=== PATIENT | male | born 1985 | race Caucasian/White ===

== ENCOUNTER 2019-11-20 13:02 | Inpatient (IN) | payer SELFPAY ==
[~2019-11-20] VITALS: Ht 160 cm; Wt 51.3 kg
[2019-11-20 13:15] VITALS: BP 124/79
--- NOTE | 2019-11-20 13:15 | NUR ---
ED Nurse Note: Patient walked into the ED from home with c/o RLQ abdominal pain for the past week. Pain is 9/10 accompanied with vomiting. Patient also c/o flu like symptoms; coughing, fever, sob, diarrhea, lost of taste and smell. Per patient he was tested negative for COVID 2 days ago from [facility]. PAtient placed on isolation bed
[2019-11-20] MEDS ORDERED: Morphine Sulfate 2mg/ml Inj(IV/IM USE ONLY) IVP ONE (13:30)
[2019-11-20] MEDS ORDERED: Ketorolac 30mg Inj IV ONE (13:30)
[2019-11-20] MEDS ORDERED: Omnipaque-300 100ml vial INJ PRN (13:30)
[2019-11-20 13:49] LABS: EOSINOPHILS % (AUTO) 0.7 % (0.0-3.0); HEMATOCRIT 43.7 % (42.0-52.0); HEMOGLOBIN 13.9 G/DL (14.2-18.0); LYMPHOCYTES % (AUTO) 23.3 % (20.0-45.0); MEAN CORPUSCULAR VOLUME 95 FL (80-99); MONOCYTES % (AUTO) 6.9 % (1.0-10.0); NEUTROPHILS % (AUTO) 68.1 % (45.0-75.0); PLATELET COUNT 415 K/UL (150-450); RED BLOOD COUNT 4.59 M/UL (4.70-6.10); RED CELL DISTRIBUTION WIDTH 12.4 % (11.6-14.8); WHITE BLOOD COUNT 11.5 K/UL (4.8-10.8)
[2019-11-20 14:00] LABS: ANION GAP 11 mmol/L (5-15); BLOOD UREA NITROGEN 21 mg/dL (7-18); CALCIUM 8.8 MG/DL (8.5-10.1); CARBON DIOXIDE 26 MMOL/L (21-32); CHLORIDE 103 MMOL/L (98-107); CREATININE 1.3 MG/DL (0.55-1.30); POTASSIUM 4.3 MMOL/L (3.5-5.1); SODIUM 140 MMOL/L (136-145)
[2019-11-20 14:13] LABS: ALANINE AMINOTRANSFERASE 22 U/L (12-78); ALBUMIN 4.4 G/DL (3.4-5.0); ALBUMIN/GLOBULIN RATIO 1.4 (1.0-2.7); ALKALINE PHOSPHATASE 74 U/L (46-116); ASPARTATE AMINO TRANSFERASE 15 U/L (15-37); BILIRUBIN,TOTAL 0.1 MG/DL (0.2-1.0)
--- NOTE | 2019-11-20 14:35 | NUR ---
ED Nurse Note: injection molding process technician at bedside
--- NOTE | 2019-11-20 14:46 | Emergency Room Report ---
History of Present Illness General Chief Complaint: Abdominal Pain Source: Patient (Zakiya Sanders) Present Illness HPI 34-year-old male with history of hypertension, anxiety currently taking lisinopril, alprazolam and Effexor here complaining of 2 weeks of continuous mid to right lower quadrant abdominal pain rating a 10 out of 10 without radiation. Complains of multiple bouts of nonbloody emesis and complains of diarrhea and reports that few days ago he noticed a few drops of blood after defecation. Denies fever and chills. Complains of shortness of breath, loss of taste and smell for 1 week. Patient reports that he came in contact with a cold with positive coworker about a week ago. Denies chest pain, cough and congestion at this time. Reports that he smokes tobacco on daily basis. Denies any alcohol use and other drug use. Reports that before coming here he took 3 Tylenols. Vital signs are within normal limits. Denies urinary symptoms. (Zakiya Sanders) Allergies: Coded Allergies: No Known Allergies (Unverified , 11/20/19) COVID-19 Screening Contact w/high risk pt: Yes Recent Travel to affected area: No Experienced COVID-19 symptoms?: Yes COVID-19 symptoms experienced: Fever (T>100.4F or >38C), Shortness of Breath, Cough COVID-19 Testing performed [place] [place] [employer]: Yes COVID-19 Screening: Negative COVID-19 COVID-19 Testing Source: [facility] (Zakiya Sanders) Patient History Past Medical History: see triage record Past Surgical History: none Pertinent Family History: none Social History: Reports: smoking Reviewed Nursing Documentation: PMH: Agreed; PSxH: Agreed (Zakiya Sanders) Past Medical History: other - pancreatitis Social History: Reports: smoking, alcohol use Social History Narrative L and D RN (Kirit Melendrez MD) Nursing Documentation-PMH Past Medical History: No History, Except For Hx Hypertension: Yes (Zakiya Sanders) Review of Systems All Other Systems: negative except mentioned in HPI (Zakiya Sanders) Physical Exam Vital Signs Date Time Temp Pulse Resp B/P (MAP) Pulse Ox O2 Delivery O2 Flow Rate FiO2 11/20/19 13:09 98.2 113 20 124/79 (94) 95 Room Air Sp02 EP Interpretation: reviewed, normal General Appearance: mild distress Head: normocephalic, atraumatic Eyes: bilateral eye normal inspection, bilateral eye PERRL ENT: hearing grossly normal, normal pharynx, no angioedema, normal voice Neck: full range of motion, supple/symm/no masses Respiratory: chest non-tender, lungs clear, normal breath sounds, no rhonchi, no wheezing, speaking full sentences Cardiovascular #1: regular rate, rhythm, no edema, no murmur Gastrointestinal: normal bowel sounds, non tender, soft, no mass, no organomegaly, no peritonitis, non-distended, no hernia, no pulsatile mass, no rebound, guarding - Diffuse Rectal: deferred Genitourinary: no CVA tenderness Musculoskeletal: back normal, digits/nails normal, no calf tenderness Neurologic: alert, motor strength/tone normal, oriented x3, sensory intact, responsive, speech normal Psychiatric: judgement/insight normal, memory normal, mood/affect normal, no suicidal/homicidal ideation Skin: no rash Lymphatic: no adenopathy (Zakiya Sanders) Medical Decision Making PA Attestation All my diagnosis and treatment plans were reviewed ad discussed with my supervising physician Dr. Melendrez (Zakiya Sanders) Diagnostic Impression: Primary Impression: Acute pancreatitis Qualified Codes: K85.90 - Acute pancreatitis without necrosis or infection, unspecified Additional Impression: Suspected 2019 novel coronavirus infection ER Course 34-year-old male with history of hypertension, anxiety currently taking lisinopril, alprazolam and Effexor here complaining of 2 weeks of continuous mid to right lower quadrant abdominal pain rating a 10 out of 10 without radiation. Complains of multiple bouts of nonbloody emesis and complains of diarrhea and reports that few days ago he noticed a few drops of blood after defecation. Denies fever and chills. Complains of shortness of breath, loss of taste and smell for 1 week. Patient reports that he came in contact with a cold with positive coworker about a week ago. Denies chest pain, cough and congestion at this time. Reports that he smokes tobacco on daily basis. Denies any alcohol use and other drug use. Reports that before coming here he took 3 Tylenols. Vital signs are within normal limits. Denies urinary symptoms. Ddx considered but are not limited to: appendicitis, cholecystis, gastritis, gastroenteritis, UTI, pyelonephritis, SBO, diverticulitis, influenza with GI manifestation, FL, pancreatitis Vital signs: are WNL, pt. is afebrile H&PE are most consistent with: Acute pancreatitis, suspected COVID-19 ORDERS: abdominal CT, abdominal pain set, EKG, ED INTERVENTIONS: NS bolus, Zofran, Pepcid, morphine, Toradol Patient was admitted with diagnosis of acute pancreatitis to Dr. Hunt under supervision of DrJaniya: Aneesh pt stable at time of admission (Zakiya Sanders) ER Course Please see above note. Full history and physical performed by me. Although he admits to alcohol the last time he ingested was 5-1/2 months ago. In addition the patient states 2 months ago he was admitted to the hospital for acute pancreatitis. A CT scan was performed but no ultrasound. The etiology of pancreatitis was not determined according to the patient. Labs today suggest the patient has acute pancreatitis. He reports 9-/2/10 pain after initial treatment with morphine. Dilaudid is ordered. Lab results and diagnosis discussed with patient. Patient admitted to the hospital for further evaluation and treatment. (Kirit Melendrez MD) EKG Diagnostic Results Rate: normal Rhythm: NSR ST Segments: no acute changes Other Impression No acute ST changes (Zakiya Sanders) Chest X-Ray Diagnostic Results Chest X-Ray Diagnostic Results : Chest X-Ray Ordered: Yes # of Views/Limited/Complete: 1 View Indication: Shortness of Breath EP Interpretation: Yes PA Xray: Interpretation reviewed, by supervising MD, and agrees with findings. Interpretation: no consolidation, no effusion, no pneumothorax Impression: No acute disease Electronically Signed by: Zakiya Bey PA-C (Zakiya Sanders) CT/MRI/US Diagnostic Results CT/MRI/US Diagnostic Results : Imaging Test Ordered: CT abdomen pelvis with contrast Impression FINDINGS: Lung bases: Unremarkable. No mass. No consolidation. ABDOMEN: Liver: There is a 1.8 cm hypodensity in the superior interlobar liver seen on series 4, image 16. This could reflect some focal fat, but location is not typical. Nonemergent ultrasound would be a reasonable first step in characterization (specifically to see if vessels passed through the lesion). Gallbladder and bile ducts: Unremarkable. No calcified stones. No ductal dilation. Pancreas: Unremarkable. No mass. No ductal dilation. Spleen: Unremarkable. No splenomegaly. Adrenals: Unremarkable. No mass. Kidneys and ureters: 6 mm lower pole right renal calculus. No ureteral stone or hydronephrosis. Stomach and bowel: No obstruction or perforation. PELVIS: Appendix: Unremarkable appendix. Bladder: Unremarkable. No mass. Reproductive: Unremarkable as visualized. ABDOMEN and PELVIS: Intraperitoneal space: Unremarkable. No free air. No significant fluid collection. Bones/joints: No acute fracture. Lumbar levocurvature. Soft tissues: Unremarkable. Vasculature: Unremarkable. No abdominal aortic aneurysm. Lymph nodes: Unremarkable. No enlarged lymph nodes. IMPRESSION: No acute process to explain symptoms. Nonobstructing right renal calculus. 1.8 cm hypodensity in the superior interlobar liver. This could reflect focal fat, but location is not typical. Recommend nonemergent ultrasound. (Zakiya Sanders) Last Vital Signs Date Time Temp Pulse Resp B/P (MAP) Pulse Ox O2 Delivery O2 Flow Rate FiO2 11/20/19 13:15 108 20 Room Air 11/20/19 13:15 99.0 124/79 95 (Zakiya Sanders) Last Vital Signs Date Time Temp Pulse Resp B/P (MAP) Pulse Ox O2 Delivery O2 Flow Rate FiO2 11/20/19 18:23 Room Air 11/20/19 18:04 96.0 73 19 107/73 (84) 100 Status: improved (Kirit Melendrez MD) Disposition: ADMITTED INPATIENT Condition: Stable Referrals: NOT CHOSEN NICK/,REFERRING (PCP) Zakiya Sanders Nov 20, 2019 14:46 Kirit Melendrez MD Nov 21, 2019 00:01
--- NOTE | 2019-11-20 15:01 | Diagnostic Imaging Report ---
EXAM: XR Chest, 1 View CLINICAL HISTORY: SOB TECHNIQUE: Frontal view of the chest. COMPARISON: No relevant prior studies available. FINDINGS: Lungs: Unremarkable. No consolidation. Pleural space: Unremarkable. No pneumothorax. Heart: Unremarkable. No cardiomegaly. Mediastinum: Unremarkable. Bones/joints: Unremarkable. IMPRESSION: No evidence of acute pulmonary disease
[2019-11-20 15:15] VITALS: BP 135/82
[2019-11-20] MEDS ORDERED: HYDROmorphone 1mg/ml Carpuject IVP ONE (15:15)
[2019-11-20] MEDS ORDERED: DiphenhydrAMINE 50mg/ml Inj IVP ONE (15:15)
[2019-11-20] MEDS ORDERED: Metoclopramide 10mg/2ml Inj IVP ONE (15:15)
[2019-11-20] MEDS ORDERED: LISINOPRIL10 MG ORAL (15:43)
[2019-11-20] MEDS ORDERED: EFFEXOR XR150 MG ORAL (15:48)
[2019-11-20] MEDS ORDERED: ALPRAZOLAM2 M1 ORAL (15:49)
--- NOTE | 2019-11-20 15:51 | NUR ---
ED Nurse Note: Patient to CT per bed
--- NOTE | 2019-11-20 16:00 | NUR ---
ED Nurse Note: Patient back from CT. Patient is more comfortable, still complaints of minimal pain. Able to rest and sleep as of the moment.
--- NOTE | 2019-11-20 16:31 | Diagnostic Imaging Report ---
EXAM: CT Abdomen and Pelvis With Intravenous Contrast CLINICAL HISTORY: PAIN TECHNIQUE: Axial computed tomography images of the abdomen and pelvis with intravenous contrast. CTDI is 3.1 mGy and DLP is 163.4 mGy-cm. One or more of the following dose reduction techniques were used: automated exposure control, adjustment of the mA and/or kV according to patient size, use of iterative reconstruction technique. COMPARISON: No relevant prior studies available. FINDINGS: Lung bases: Unremarkable. No mass. No consolidation. ABDOMEN: Liver: There is a 1.8 cm hypodensity in the superior interlobar liver seen on series 4, image 16. This could reflect some focal fat, but location is not typical. Nonemergent ultrasound would be a reasonable first step in characterization (specifically to see if vessels passed through the lesion). Gallbladder and bile ducts: Unremarkable. No calcified stones. No ductal dilation. Pancreas: Unremarkable. No mass. No ductal dilation. Spleen: Unremarkable. No splenomegaly. Adrenals: Unremarkable. No mass. Kidneys and ureters: 6 mm lower pole right renal calculus. No ureteral stone or hydronephrosis. Stomach and bowel: No obstruction or perforation. PELVIS: Appendix: Unremarkable appendix. Bladder: Unremarkable. No mass. Reproductive: Unremarkable as visualized. ABDOMEN and PELVIS: Intraperitoneal space: Unremarkable. No free air. No significant fluid collection. Bones/joints: No acute fracture. Lumbar levocurvature. Soft tissues: Unremarkable. Vasculature: Unremarkable. No abdominal aortic aneurysm. Lymph nodes: Unremarkable. No enlarged lymph nodes. IMPRESSION: No acute process to explain symptoms. Nonobstructing right renal calculus. 1.8 cm hypodensity in the superior interlobar liver. This could reflect focal fat, but location is not typical. Recommend nonemergent ultrasound.
--- NOTE | 2019-11-20 17:15 | NUR ---
ED Nurse Note: Report given to NAJMA GUTIERREZ
--- NOTE | 2019-11-20 17:20 | NUR ---
ED Nurse Note: Patient unable to void and produce specimen for urinalysis. Straight cath done but patient has prostate problem. ERMD notified and agreed to bring patient up without urinalysis
--- NOTE | 2019-11-20 17:35 | NUR ---
TRANSFER TO FLOOR: Patient transferred to [facility] 4E at room 418-2 via gurney accompanied by RN and VENEER JOINTER HELPER. Belongings checked together with RN. Transported safely to bed and endorsed to RN on duty.
--- NOTE | 2019-11-20 17:57 | NUR ---
NURSE NOTES: Patient admitted from ER; received telephone report from MATT Whyte; patient arrived the floor via gurney; alert x4; on room air, no sing of shortness of breath; no sing of distress; no sing of chest pain; IV Left For-arm flushes well; belonging signed by transferring and receiving nurse's; skin intact; side rails up x2,breaks engaged, bed at lowest position; call light within reach; vital signs taken upon arrival to the unit; urine hut left at the toilet to collect urine; patient is aware; call light within reach; will keep monitoring.
--- NOTE | 2019-11-20 18:03 | NUR ---
NURSE NOTES: I received admission order from MD Tejeda; order carried out as order given;
[2019-11-20 18:04] VITALS: BP 107/73
--- NOTE | 2019-11-20 19:29 | NUR ---
HAND-OFF: Report given to MATT Cohen. Endorsed to the incoming nurse the need to collect Urine; patient resting; plan of care endorsed;
--- NOTE | 2019-11-20 19:35 | NUR ---
NURSE NOTES: Pt. received from MATT Hollis. Pt. AAOx4, on room air breathing even and unlabored, complaints of pain in the epigastric area radiating to the right upper quadrant, will follow up with primary physician for paid medication orders. Pt. reports episodes of clear emesis, will also follow up with primary physician for orders. IV left FA 18g intact and patent, running 1/2 NS at 100cc/hr. Bed is low and locked side rails x2 up, and call light in reach.
--- NOTE | 2019-11-20 19:40 | NUR ---
NURSE NOTES: Called Dr. Tejeda for pain medication and antiemetic orders, awaiting return call.
--- NOTE | 2019-11-20 19:50 | NUR ---
NURSE NOTES: Orders received from Dr. Tejeda to consult with Dr. Cam and Dr. Campbell. Calls made to Dr. Cam and Dr. Campbell, awaiting return call and orders.
[2019-11-20 20:00] VITALS: BP 112/73
--- NOTE | 2019-11-20 20:40 | NUR ---
NURSE NOTES: Orders received from Dr. Cam, will proceed with orders.
[2019-11-20] MEDS ORDERED: LORazepam Inj 2mg/ml 1ml IV PRN (20:45)
[2019-11-20] MEDS: Morphine Sulfate 4mg/ml Inj (IV USE ONLY) IVP PRN ×2 (21:08→23:16)
[2019-11-21] VITALS: BP 111/73
[2019-11-21] LABS: APPEARANCE,URINE CLEAR; BILIRUBIN, URINE NEGATIVE (NEGATIVE); COLOR,URINE PALE YELLOW; GLUCOSE, URINE (UA) NEGATIVE (NEGATIVE); KETONES,URINE NEGATIVE (NEGATIVE); LEUKOCYTE ESTERASE ,URINE NEGATIVE (NEGATIVE); NITRITE,URINE NEGATIVE (NEGATIVE); PH,URINE 5 (4.5-8.0); PROTEIN,URINE NEGATIVE (NEGATIVE); UROBILINOGEN,URINE NORMAL MG/DL (0.0-1.0)
[2019-11-21] MEDS: Morphine Sulfate 4mg/ml Inj (IV USE ONLY) IVP PRN ×4 (01:47→08:37)
[2019-11-21 04:00] VITALS: BP 110/66
--- NOTE | 2019-11-21 07:01 | NUR ---
NURSE NOTES: Pt. complaining of new onset lower abdominal pain. Pt. voiding throughout the night, now complaining of difficulty. Bladder scan was preformed and showed 659 cc fluid retained. Lower abdomen is tender to palpation. Charge nurse aware, Dr. Tejeda called and notified. Awaiting return call for orders.
[2019-11-21 07:10] LABS: BASOPHILS % (AUTO) 1.7 % (0.0-2.0); EOSINOPHILS % (AUTO) 1.6 % (0.0-3.0); HEMATOCRIT 39.7 % (42.0-52.0); HEMOGLOBIN 12.4 G/DL (14.2-18.0); LYMPHOCYTES % (AUTO) 47.3 % (20.0-45.0); MEAN CORPUSCULAR VOLUME 97 FL (80-99); MONOCYTES % (AUTO) 8.9 % (1.0-10.0); NEUTROPHILS % (AUTO) 40.6 % (45.0-75.0); PLATELET COUNT 296 K/UL (150-450); RED BLOOD COUNT 4.11 M/UL (4.70-6.10); RED CELL DISTRIBUTION WIDTH 12.7 % (11.6-14.8); WHITE BLOOD COUNT 5.3 K/UL (4.8-10.8)
[2019-11-21 07:28] LABS: ALANINE AMINOTRANSFERASE 19 U/L (12-78); ALBUMIN 3.3 G/DL (3.4-5.0); ALBUMIN/GLOBULIN RATIO 1.1 (1.0-2.7); ALKALINE PHOSPHATASE 55 U/L (46-116); ANION GAP 6 mmol/L (5-15); ASPARTATE AMINO TRANSFERASE 16 U/L (15-37); BILIRUBIN,TOTAL 0.2 MG/DL (0.2-1.0); BLOOD UREA NITROGEN 15 mg/dL (7-18); CALCIUM 8.2 MG/DL (8.5-10.1); CARBON DIOXIDE 29 MMOL/L (21-32); CHLORIDE 110 MMOL/L (98-107); CREATININE 1.2 MG/DL (0.55-1.30); POTASSIUM 4.9 MMOL/L (3.5-5.1); SODIUM 145 MMOL/L (136-145)
--- NOTE | 2019-11-21 07:34 | NUR ---
HAND-OFF: Report given to MATT Yarbrough. Endorsed awaiting unders from Dr. Tejeda regarding pt.s abdominal pain and urine retention.
--- NOTE | 2019-11-21 07:34 | NUR ---
NURSE NOTES: Message left for Dr. Tejeda to follow up on orders for pt.'s fluid retention. Awaiting call back and will endorse to day shift nurse.
[2019-11-21 08:00] VITALS: BP 112/71
--- NOTE | 2019-11-21 08:00 | NUR ---
NURSE NOTES: received patient in bed, patient complaint of high level of pain at lower abdomen, reports he's unable to urinate. Pain medication not due, will contact MD for further orders. LFA IV access, receives IVF, no sign of infiltration noted. Call light within easy reach, siderails up x2, bed locked at lowest position possible. NPO status, patient is aware and compliant. Will continue to monitor patient and follow up with the plan of care.
--- NOTE | 2019-11-21 08:40 | NUR ---
NURSE NOTES: Inserted Candelaria catheter FR16, with light yellow urine output. Insuflated baloon with 10cc NS. Anchored to left anterior/medial tight.
--- NOTE | 2019-11-21 10:08 | Consultation ---
History of Present Illness General Date patient seen: Nov 21, 2019 Time patient seen: 09:30 - am Chief Complaint: Abdominal Pain Referring physician: Ileana Reason for Consultation: Pain Management Present Illness HPI 34-year-old male with history of hypertension, anxiety currently taking lisinopril, alprazolam and Effexor here complaining of 2 weeks of continuous mid to right lower quadrant abdominal pain rating a 10 out of 10 without radiation. Complains of multiple bouts of nonbloody emesis and complains of diarrhea and reports that few days ago he noticed a few drops of blood after defecation. Reports that before coming here he took 3 Tylenols. Started on Morphine 4mg IV Q4H PRN severe pain with minimal pain relief, we were consulted so patient has adequate pain control while here in the hospital. Patient History Past Surgical History: none Pertinent Family History: none Social History: Reports: smoking Past Medical History: other - pancreatitis Hx Hypertension: Yes Social History: Reports: smoking, alcohol use Allergies: Coded Allergies: No Known Allergies (Unverified , 11/20/19) Medication History Scheduled Lisinopril* (Lisinopril*), 10 MG ORAL DAILY, (Reported) Venlafaxine Hcl* (Effexor Xr*), 150 MG ORAL DAILY, (Reported) Scheduled PRN Alprazolam (Alprazolam), 2 MG ORAL DAILY PRN for For Anxiety, (Reported) Patient History Healthcare decision maker N Resuscitation status Advanced Directive on File Review of Systems All Other Systems: negative except mentioned in HPI Physical Exam Physical Exam Narrative General Appearance: mild distress Head: normocephalic, atraumatic Eyes: bilateral eye normal inspection, bilateral eye PERRL ENT: hearing grossly normal, normal pharynx, no angioedema, normal voice Neck: full range of motion, supple/symm/no masses Respiratory: chest non-tender, lungs clear, normal breath sounds, no rhonchi, no wheezing, speaking full sentences Cardiovascular #1: regular rate, rhythm, no edema, no murmur Gastrointestinal: normal bowel sounds, non tender, soft, no mass, no organomegaly, no peritonitis, non-distended, no hernia, no pulsatile mass, no rebound, guarding - Diffuse Rectal: deferred Genitourinary: no CVA tenderness Musculoskeletal: back normal, digits/nails normal, no calf tenderness Neurologic: alert, motor strength/tone normal, oriented x3, sensory intact, responsive, speech normal Psychiatric: judgement/insight normal, memory normal, mood/affect normal, no suicidal/homicidal ideation Skin: no rash Lymphatic: no adenopath Last 24 Hour Vital Signs Date Time Temp Pulse Resp B/P (MAP) Pulse Ox O2 Delivery O2 Flow Rate FiO2 11/21/19 04:00 96.8 68 18 110/66 (81) 96 11/21/19 02:17 97.2 11/21/19 00:00 97.2 62 16 111/73 (86) 99 11/20/19 21:00 Room Air 11/20/19 20:00 97.0 71 18 112/73 (86) 97 11/20/19 18:23 Room Air 11/20/19 18:04 96.0 73 19 107/73 (84) 100 11/20/19 17:48 98.8 72 20 134/78 98 Room Air 11/20/19 15:44 98.2 11/20/19 15:15 98.2 98 20 135/82 95 Room Air 11/20/19 14:44 98.2 11/20/19 13:58 98.2 11/20/19 13:15 108 20 Room Air 11/20/19 13:15 99.0 108 20 124/79 95 Room Air 11/20/19 13:09 98.2 113 20 124/79 (94) 95 Room Air Intake and Output 11/20/19 11/21/19 19:00 07:00 Intake Total 1500 ml 1100 ml Output Total 700 ml Balance 1500 ml 400 ml Intake IV Total 1500 ml 1100 ml Output Urine Total 700 ml # Voids 4 Laboratory Tests Test 11/20/19 13:30 11/20/19 23:45 11/21/19 04:00 White Blood Count 11.5 K/UL (4.8-10.8) H 5.3 K/UL (4.8-10.8) # Red Blood Count 4.59 M/UL (4.70-6.10) L 4.11 M/UL (4.70-6.10) L Hemoglobin 13.9 G/DL (14.2-18.0) L 12.4 G/DL (14.2-18.0) L Hematocrit 43.7 % (42.0-52.0) 39.7 % (42.0-52.0) L Mean Corpuscular Volume 95 FL (80-99) 97 FL (80-99) Mean Corpuscular Hemoglobin 30.2 PG (27.0-31.0) 30.1 PG (27.0-31.0) Mean Corpuscular Hemoglobin Concent 31.8 G/DL (32.0-36.0) L 31.2 G/DL (32.0-36.0) L Red Cell Distribution Width 12.4 % (11.6-14.8) 12.7 % (11.6-14.8) Platelet Count 415 K/UL (150-450) 296 K/UL (150-450) Mean Platelet Volume 6.0 FL (6.5-10.1) L 6.1 FL (6.5-10.1) L Neutrophils (%) (Auto) 68.1 % (45.0-75.0) 40.6 % (45.0-75.0) L Lymphocytes (%) (Auto) 23.3 % (20.0-45.0) 47.3 % (20.0-45.0) H Monocytes (%) (Auto) 6.9 % (1.0-10.0) 8.9 % (1.0-10.0) Eosinophils (%) (Auto) 0.7 % (0.0-3.0) 1.6 % (0.0-3.0) Basophils (%) (Auto) 1.0 % (0.0-2.0) 1.7 % (0.0-2.0) Prothrombin Time 11.0 SEC (9.30-11.50) Prothromb Time International Ratio 1.0 (0.9-1.1) Activated Partial Thromboplast Time 28 SEC (23-33) D-Dimer 0.19 mg/L FEU (0.00-0.49) Sodium Level 140 MMOL/L (136-145) 145 MMOL/L (136-145) Potassium Level 4.3 MMOL/L (3.5-5.1) 4.9 MMOL/L (3.5-5.1) Chloride Level 103 MMOL/L (98-107) 110 MMOL/L (98-107) H Carbon Dioxide Level 26 MMOL/L (21-32) 29 MMOL/L (21-32) Anion Gap 11 mmol/L (5-15) 6 mmol/L (5-15) Blood Urea Nitrogen 21 mg/dL (7-18) H 15 mg/dL (7-18) Creatinine 1.3 MG/DL (0.55-1.30) 1.2 MG/DL (0.55-1.30) Estimat Glomerular Filtration Rate > 60 mL/min (>60) > 60 mL/min (>60) Glucose Level 86 MG/DL (74-106) 87 MG/DL (74-106) Lactic Acid Level 1.70 mmol/L (0.4-2.0) Calcium Level 8.8 MG/DL (8.5-10.1) 8.2 MG/DL (8.5-10.1) L Magnesium Level 2.0 MG/DL (1.8-2.4) Ferritin 29 NG/ML (8-388) Total Bilirubin 0.1 MG/DL (0.2-1.0) L 0.2 MG/DL (0.2-1.0) Aspartate Amino Transf (AST/SGOT) 15 U/L (15-37) 16 U/L (15-37) Alanine Aminotransferase (ALT/SGPT) 22 U/L (12-78) 19 U/L (12-78) Alkaline Phosphatase 74 U/L (46-116) 55 U/L (46-116) Lactate Dehydrogenase 220 U/L (81-234) Troponin I 0.000 ng/mL (0.000-0.056) C-Reactive Protein, Quantitative 1.2 mg/dL (0.00-0.90) H Total Protein 7.5 G/DL (6.4-8.2) 6.2 G/DL (6.4-8.2) L Albumin 4.4 G/DL (3.4-5.0) 3.3 G/DL (3.4-5.0) L Globulin 3.1 g/dL 2.9 g/dL Albumin/Globulin Ratio 1.4 (1.0-2.7) 1.1 (1.0-2.7) Lipase 1654 U/L (73-393) H 138 U/L (73-393) Serum Alcohol < 3 mg/dL Urine Color Pale yellow Urine Appearance Clear Urine pH 5 (4.5-8.0) Urine Specific Nora 1.010 (1.005-1.035) Urine Protein Negative (NEGATIVE) Urine Glucose (UA) Negative (NEGATIVE) Urine Ketones Negative (NEGATIVE) Urine Blood Negative (NEGATIVE) Urine Nitrite Negative (NEGATIVE) Urine Bilirubin Negative (NEGATIVE) Urine Urobilinogen Normal MG/DL (0.0-1.0) Urine Leukocyte Esterase Negative (NEGATIVE) Urine Opiates Screen Negative (NEGATIVE) Urine Barbiturates Screen Negative (NEGATIVE) Phencyclidine (PCP) Screen Negative (NEGATIVE) Urine Amphetamines Screen Negative (NEGATIVE) Urine Benzodiazepines Screen Positive (NEGATIVE) H Urine Cocaine Screen Negative (NEGATIVE) Urine Marijuana (THC) Screen Negative (NEGATIVE) Height (Feet): 5 Height (Inches): 3.00 Weight (Pounds): 115 Medications Current Medications Medications (Trade) Dose Ordered Sig/Denise Route PRN Reason Start Time Stop Time Status Last Admin Dose Admin Iohexol (OMNIPAQUE-300 100ml) 100 ml NOW PRN INJ Radiology Procedure 11/20/19 13:30 11/22/19 13:17 Lorazepam (Ativan 2mg/ml 1ml) 0.5 mg Q4H PRN IV For Anxiety 11/20/19 20:45 11/27/19 20:44 Morphine Sulfate (Morphine Sulfate) 4 mg Q2H PRN IVP Severe Pain (Pain Scale 7-10) 11/20/19 20:45 11/27/19 20:44 11/21/19 08:37 Ondansetron HCl (Zofran) 4 mg Q4H PRN IVP Nausea & Vomiting 11/20/19 20:45 12/20/19 20:44 11/21/19 06:40 Sodium Chloride 1,000 ml @ 75 mls/hr [id number] IV 11/21/19 08:30 12/20/19 08:29 11/21/19 08:30 Assessment/Plan Assessment/Plan: (1) Abdominal pain (2) Pancreatics D/c morphine start Dilaudid 1mg IV Q4H PRN severe pain D/w Dr. Cam he concurred. Thank you for the courtesy of this consultation. Kraig Manley Nov 21, 2019 10:08
--- NOTE | 2019-11-21 10:47 | NUR ---
CASE MANAGEMENT:INITIAL REVIEW 34 YR OLD MALE WALKED IN TO ED FROM HOME CC;ABDOMINAL PAIN SI;ACUTE PANCREATITIS. SUSPECTED COVID-19. 99.0 113 20 134/82 95% ON RA WBC 11.5 BUN 21 LIPASE 1654 URINE TOX (+) BENZODIAZEPINES UA ~ NEGATIVE CXR ~ NO EVIDENCE OF ACUTE PULMONARY DISEASE ABD/PELVIS CT W/CONTRAST ~ No acute process to explain symptoms. Nonobstructing right renal calculus. IS;MORPHINE IV BENADRYL IV REGLAN IV IVF NS DILAUDID IV COVID-19 PCR ~ RESULT PENDING ADMITTED TO MED SURG 11/21/19 @ 0928 MED SURG STATU
[2019-11-21] MEDS: Venlafaxine XR 150mg cap ORAL SCH (11:55)
[2019-11-21] MEDS: Venlafaxine XR 37.5mg cap ORAL SCH (11:55)
[2019-11-21 12:00] VITALS: BP 108/75
--- NOTE | 2019-11-21 12:27 | General Progress Note ---
Assessment/Plan Assessment/Plan: abd pain elevated lipase>>> no normal neg CT difficulty with urination>> giron start clears repeat labs fu ID may need urology eval will fu Subjective ROS Limited/Unobtainable: Yes Allergies: Coded Allergies: No Known Allergies (Unverified , 11/20/19) Objective Last 24 Hour Vital Signs Date Time Temp Pulse Resp B/P (MAP) Pulse Ox O2 Delivery O2 Flow Rate FiO2 11/21/19 09:00 Room Air 11/21/19 08:00 96.7 85 18 112/71 (85) 97 11/21/19 04:00 96.8 68 18 110/66 (81) 96 11/21/19 02:17 97.2 11/21/19 00:00 97.2 62 16 111/73 (86) 99 11/20/19 21:00 Room Air 11/20/19 20:00 97.0 71 18 112/73 (86) 97 11/20/19 18:23 Room Air 11/20/19 18:04 96.0 73 19 107/73 (84) 100 11/20/19 17:48 98.8 72 20 134/78 98 Room Air 11/20/19 15:44 98.2 11/20/19 15:15 98.2 98 20 135/82 95 Room Air 11/20/19 14:44 98.2 11/20/19 13:58 98.2 11/20/19 13:15 108 20 Room Air 11/20/19 13:15 99.0 108 20 124/79 95 Room Air 11/20/19 13:09 98.2 113 20 124/79 (94) 95 Room Air Intake and Output 11/20/19 11/21/19 19:00 07:00 Intake Total 1500 ml 1100 ml Output Total 700 ml Balance 1500 ml 400 ml Intake IV Total 1500 ml 1100 ml Output Urine Total 700 ml # Voids 4 Laboratory Tests 11/20/19 13:30: White Blood Count 11.5H, Red Blood Count 4.59L, Hemoglobin 13.9L, Hematocrit 43.7, Mean Corpuscular Volume 95, Mean Corpuscular Hemoglobin 30.2, Mean Corpuscular Hemoglobin Concent 31.8L, Red Cell Distribution Width 12.4, Platelet Count 415, Mean Platelet Volume 6.0L, Neutrophils (%) (Auto) 68.1, Lymphocytes (%) (Auto) 23.3, Monocytes (%) (Auto) 6.9, Eosinophils (%) (Auto) 0.7, Basophils (%) (Auto) 1.0, Prothrombin Time 11.0, Prothromb Time International Ratio 1.0, Activated Partial Thromboplast Time 28, D-Dimer 0.19, Sodium Level 140, Potassium Level 4.3, Chloride Level 103, Carbon Dioxide Level 26, Anion Gap 11, Blood Urea Nitrogen 21H, Creatinine 1.3, Estimat Glomerular Filtration Rate > 60, Glucose Level 86, Lactic Acid Level 1.70, Calcium Level 8.8, Magnesium Level 2.0, Ferritin 29, Total Bilirubin 0.1L, Aspartate Amino Transf (AST/SGOT) 15, Alanine Aminotransferase (ALT/SGPT) 22, Alkaline Phosphatase 74, Lactate Dehydrogenase 220, Troponin I 0.000, C-Reactive Protein , Quantitative 1.2H, Total Protein 7.5, Albumin 4.4, Globulin 3.1, Albumin/ Globulin Ratio 1.4, Lipase 1654H, Serum Alcohol < 3 11/20/19 23:45: Urine Color Pale yellow, Urine Appearance Clear, Urine pH 5, Urine Specific Massey 1.010, Urine Protein Negative, Urine Glucose (UA) Negative, Urine Ketones Negative, Urine Blood Negative, Urine Nitrite Negative, Urine Bilirubin Negative, Urine Urobilinogen Normal, Urine Leukocyte Esterase Negative, Urine Opiates Screen Negative, Urine Barbiturates Screen Negative, Phencyclidine (PCP ) Screen Negative, Urine Amphetamines Screen Negative, Urine Benzodiazepines Screen PositiveH, Urine Cocaine Screen Negative, Urine Marijuana (THC) Screen Negative 11/21/19 04:00: White Blood Count 5.3#, Red Blood Count 4.11L, Hemoglobin 12.4L, Hematocrit 39.7L, Mean Corpuscular Volume 97, Mean Corpuscular Hemoglobin 30.1, Mean Corpuscular Hemoglobin Concent 31.2L, Red Cell Distribution Width 12.7, Platelet Count 296, Mean Platelet Volume 6.1L, Neutrophils (%) (Auto) 40.6L, Lymphocytes (%) (Auto) 47.3H, Monocytes (%) (Auto) 8.9, Eosinophils (%) (Auto) 1.6, Basophils (%) (Auto) 1.7, Sodium Level 145, Potassium Level 4.9, Chloride Level 110H, Carbon Dioxide Level 29, Anion Gap 6, Blood Urea Nitrogen 15, Creatinine 1.2, Estimat Glomerular Filtration Rate > 60, Glucose Level 87, Calcium Level 8.2L, Total Bilirubin 0.2, Aspartate Amino Transf (AST/SGOT) 16, Alanine Aminotransferase (ALT/SGPT) 19, Alkaline Phosphatase 55, Total Protein 6.2L, Albumin 3.3L, Globulin 2.9, Albumin/Globulin Ratio 1.1, Lipase 138 Height (Feet): 5 Height (Inches): 3.00 Weight (Pounds): 115 General Appearance: alert EENT: normal ENT inspection Neck: supple Cardiovascular: normal rate Respiratory/Chest: lungs clear Abdomen: soft, hypoactive bowel sounds, tender Extremities: non-tender Scottie Campbell MD Nov 21, 2019 12:27
[2019-11-21] MEDS: HYDROmorphone 1mg/ml Carpuject IVP PRN ×3 (13:03→21:59)
[2019-11-21 16:00] VITALS: BP 120/81
--- NOTE | 2019-11-21 19:30 | NUR ---
HAND-OFF: Report given to MATT Farfan.
--- NOTE | 2019-11-21 19:31 | NUR ---
NURSE NOTES: Received patient in no apparent distress. A&OX4. IV site patent and intact. Candelaria cath draining well by gravity, yellow urine noted. Bed in lowest position. Call light within reach. Will continue to monitor.
[2019-11-21 20:00] VITALS: BP 124/86
--- NOTE | 2019-11-21 21:44 | Consultation ---
DATE OF CONSULTATION: 11/21/2019 UROLOGY CONSULTATION ATTENDING/ PHYSICIAN: Hayder Tejeda MD. CHIEF COMPLAINT / HISTORY OF PRESENT ILLNESS: I was asked by Dr. Tejeda to evaluate this 34-year-old gentleman regarding history of acute urinary retention of unclear etiology. Briefly, the patient presented to the hospital with history of lower abdominal pain. This is also associated with nausea, vomiting, diarrhea. He takes Effexor at baseline but has been on this medication for years. He has never had urinary retention before or problems with retention secondary to this medication. During the course of his hospitalization here, he had progressive difficulty urinating and eventually a Candelaria catheter was placed. Given the above, I was asked to evaluate the patient. The patient reports a baseline history of kidney stones. He has previously seen a urologist and had procedures done for the same. To his knowledge, there was no problems with these procedures or resultant strictures etc. Prior to couple of days ago, he was urinating fine. PAST MEDICAL HISTORY: 1. Nephrolithiasis. 2. Hypertension. 3. Anxiety. 4. Pancreatitis. PAST SURGICAL HISTORY: Lithotripsy, NOS. MEDICATIONS: Please see the chart for current medications and administration details. ALLERGIES: No known drug allergies. SOCIAL HISTORY: Unremarkable for drug use. The patient drinks alcohol socially and smokes. He works as a traveling nurse. FAMILY HISTORY: Noncontributory. REVIEW OF SYSTEMS: A 14-system review of systems is unremarkable outside what is described above. PHYSICAL EXAMINATION: GENERAL: The patient is a young gentleman, awake, alert, and oriented x4, pleasant, no obvious distress. HEENT: NC/AT. EOMI. NECK: Supple. Oropharynx clear. CHEST: Within normal limits. ABDOMEN: Soft, nontender, and nondistended. EXTREMITIES: Warm and well perfused. No cyanosis, clubbing, or edema. LABORATORY DATA: White blood cell count 5.3 down from 11.5 on admission, hematocrit 39.7, platelets 296. Sodium 145, potassium 4.9, chloride 110, bicarb 29, BUN 15, creatinine 1.2, glucose 87, calcium 8.2. LFTs within normal limits. Lipase 1654 down to 138. Urinalysis specific gravity 1.010, pH 5.0. Dip test negative for all findings. Urine toxicology notable for benzodiazepines, otherwise unremarkable. DIAGNOSTIC IMAGING: CT scan of the abdomen and pelvis, no acute process. There is a nonobstructing 6 mm lower pole right renal stone, other findings as noted. ASSESSMENT AND PLAN: The patient is a 34-year-old gentleman with a history of acute abdominal pain. He also developed progressive difficulty urinating and acute urinary retention while here in the hospital. The patient takes Effexor at baseline which can cause urinary retention but has been on this medication without problems for years. He denies any proceeding surgery, anesthesia, change in medication or health extra to explain his urinary retention. Laboratory data is notable for an elevated lipase which has quickly returned to normal. Diagnostic imaging with CT scan does not reveal any significant finding but does reveal an incidental 6 mm right renal stone. I discussed these findings today with the patient at the bedside. We will keep his catheter in place for now. I will start him on some Flomax in an effort to try to improve his voiding. We can take his catheter out on Thursday morning to see if he can urinate without it. In the meantime, opioids and other medications for pain that can effect urinary function should be limited. Thank you for allowing me to participate in the care of this nice gentleman. Please do not hesitate to contact me for any questions that you may further have regarding his care. I will see him with you as needed. Jake Mendiola M.D. DR: Teresita JOB#: [id number] CC:
[2019-11-21] MEDS: Tamsulosin 0.4mg cap ORAL SCH (21:58)
--- NOTE | 2019-11-21 22:23 | Initial Psychiatric Evaluation ---
Psychiatry Consultation Psychiatry Consultation Chief Complaint: Abdominal Pain History of Present Illness: 34-year-old male with history of hypertension, anxiety on lisinopril, alprazolam and Effexor here complaining of 2 weeks of continuous mid to right lower quadrant abdominal pain rating a 10 out of 10 without radiation. the pt is doing well not depressed/ Allergies: Coded Allergies: No Known Allergies (Unverified , 11/20/19) Medication History Scheduled Lisinopril* (Lisinopril*), 10 MG ORAL DAILY, (Reported) Venlafaxine Hcl* (Effexor Xr*), 150 MG ORAL DAILY, (Reported) Scheduled PRN Alprazolam (Alprazolam), 2 MG ORAL DAILY PRN for For Anxiety, (Reported) Patient History History Provided By: Patient Objective Data Height (Feet): 5 Height (Inches): 3.00 Weight (Pounds): 115 Appearance: no abnormalities noted Additional Comments: Alert, oriented x4 to self, place, situation, and date. Mood is depressed. Affect is constricted. Congruent mood. Thought process is linear and goal oriented. Thought content, there is suicidal ideation without plan. No homicidal ideation. No delusions. No auditory or visual hallucination. Cognition is impaired including memory and concentration. Insight and judgment is poor. Assessment/Plan Assessment/Plan Status: stable, progressing Assessment/Plan: Assessment/Plan Status: stable Diagnosis [place] I: ASSESSMENT: AXIS I: 1. Major depressive disorder. 2. Anxiety disorder. AXIS II: Deferred. AXIS III: As above. AXIS IV: As above. AXIS V: 50 PLAN: 1. cont effexor in the morning. 3. Provide the patient with reality orientation. 4. We will continue to follow up and reassess Tommy Roach MD Nov 21, 2019 22:23
[2019-11-22] VITALS: BP 127/84
--- NOTE | 2019-11-22 | History and Physical Report ---
DATE OF ADMISSION: 11/20/2019 HISTORY OF PRESENT ILLNESS: Patient comes in because of pancreatitis. Patient has a complaint of abdominal pain. Patient also is anxious. Patient basically was admitted. Denies nausea, vomiting, or diarrhea. Denies fever or chills. Patient was admitted for acute pancreatitis. No history of gallstones. No history of alcohol. Does have some nausea. Denies fever or chills. Denies shortness of breath. Denies cough and is anxious. PAST MEDICAL HISTORY: Significant for depression, anxiety, hypertension, and kidney stones. PAST SURGICAL HISTORY: None. SOCIAL HISTORY: Does have history of smoking. Denies history of drug abuse. Denies history of alcohol abuse. MEDICATIONS: He takes lisinopril, Effexor, and Xanax p.r.n. FAMILY HISTORY: Noncontributory. REVIEW OF SYSTEMS: HEENT: Denies headaches. RESPIRATORY: Denies shortness of breath. Denies cough. CARDIOVASCULAR: Denies chest pain. GASTROINTESTINAL: Does have some nausea and some abdominal pain for 2 days. EXTREMITIES: Denies pain in lower extremities. NEUROLOGIC: Denies change in speech pattern. PHYSICAL EXAMINATION: VITAL SIGNS: Temperature 96.8, pulse is 86, blood pressure 108/75. HEENT: PERRLA. NECK: Supple. No lymphadenopathy. CHEST: Clear to auscultation. CARDIOVASCULAR: Regular rate and rhythm. No murmurs or extra sounds. GASTROINTESTINAL: Soft, nontender, nondistended. No organomegaly. EXTREMITIES: No edema. Moves all four extremities. NEUROLOGIC: Sensory intact to light touch. Reflexes in both sides. Moves all four extremities. LABORATORY DATA: WBC of 11.5, hemoglobin 13.9, platelets 415. Sodium 140, potassium 4.3, BUN of 21, creatinine of 1.3. ASSESSMENT AND PLAN: Pancreatitis, anxiety, depression, history of kidney stones. Also patient had a postvoid residual of 600 mL and does complain of suprapubic tenderness, so Candelaria catheter was placed by me and ordered by me and I have also consulted Dr. Mendiola and Dr. Rey Fontaine as well as Dr. Campbell to see if there is any infectious etiology as well as Dr. Roach for the depression and Dr. Mendiola, Dr. Campbell, and Dr. Rey Fontaine have been consulted for the above-mentioned abnormalities and symptoms and abnormal laboratories. Antibiotics if any per Dr. Rey Fontaine and patient is currently kept NPO. IV fluids will be given. Dr. Jake Mendiola has been consulted for Urology rule out BPH. Hayder Tejeda M.D. DR: NADEEM JOB#: [id number] CC:
[2019-11-22] MEDS: HYDROmorphone 1mg/ml Carpuject IVP PRN ×2 (01:59→06:06)
--- NOTE | 2019-11-22 02:44 | Consultation ---
DATE OF CONSULTATION: 11/21/2019 INFECTIOUS DISEASE CONSULTATION CONSULTING PHYSICIAN: Rey Fontaine MD PRIMARY ATTENDING PHYSICIAN: Hayder Tejeda MD REASON FOR CONSULT: Acute pancreatitis. HISTORY OF PRESENT ILLNESS: A 34-year-old white male admitted yesterday complaining of abdominal pain for two weeks, 02/24. He has some loss of appetite and smell, shortness of breath at the time of admission. He had difficulty of passing urine and urinary retention. A Candelaria catheter was placed today. PAST MEDICAL HISTORY: Hypertension, anxiety, has kidney stone. PAST SURGICAL HISTORY: He has history of orthopedic foot surgery including hardware and removal of kidney stone. ALLERGIES: No known drug allergy. MEDICATIONS: The patient is getting Truvada for HIV pre-exposure prophylaxis. Current medications include famotidine, hydromorphone, lorazepam, metoclopramide, morphine, Zofran, venlafaxine. SOCIAL HISTORY: Denies alcohol, drug abuse, or smoking. Single. REVIEW OF SYSTEMS: Patient has had no significant coughing. No nausea. No vomiting. Pain is controlled. PHYSICAL EXAMINATION: VITAL SIGNS: Temperature 96.7, pulse 85, blood pressure 112/71. GENERAL APPEARANCE: No acute distress. He is small built. HEAD AND NECK: Slightly whitish tongue. HEART: Normal rate. LUNGS: Clear. ABDOMEN: Soft, nontender. EXTREMITIES: No edema. GENITOURINARY: Candelaria catheter. LABORATORY AND DIAGNOSTIC DATA: Sodium 145, potassium 4.9, chloride 110, bicarbonate 29, BUN 15, creatinine 1.2. Glucose is 87. Lipase at the time of admission was 1654, now is 138. Urine toxicology was positive for benzodiazepines. WBC at the time of admission was 11.5, now is 5.3; hemoglobin 12.4; hematocrit 39.7, and platelets 296. UA was negative. The patient had a chest x-ray that was negative. CT scan of the abdomen and pelvis, no acute process. There was hypodensity in liver. IMPRESSION: Acute pancreatitis, seems to be nonbiliary. The patient also is taking Truvada before admission, can cause pancreatitis; has urinary retention, hypertension, and anxiety. RECOMMENDATION: Observe off antibiotic. Do not suggest starting of Truvada now. Case was discussed with the patient. At the end of my exam, I thank Dr. Tejeda for involving me in the care of this patient. Rey Fontaine M.D. DR: JOSHUA JOB#: [id number] CC: BRENT
[2019-11-22 04:00] VITALS: BP 110/76
[2019-11-22 06:15] LABS: EOSINOPHILS % (AUTO) 1.1 % (0.0-3.0); HEMATOCRIT 38.7 % (42.0-52.0); HEMOGLOBIN 12.2 G/DL (14.2-18.0); LYMPHOCYTES % (AUTO) 31.7 % (20.0-45.0); MEAN CORPUSCULAR VOLUME 95 FL (80-99); MONOCYTES % (AUTO) 9.5 % (1.0-10.0); NEUTROPHILS % (AUTO) 56.6 % (45.0-75.0); PLATELET COUNT 346 K/UL (150-450); RED BLOOD COUNT 4.06 M/UL (4.70-6.10); RED CELL DISTRIBUTION WIDTH 12.5 % (11.6-14.8); WHITE BLOOD COUNT 5.3 K/UL (4.8-10.8)
[2019-11-22 07:00] LABS: ALANINE AMINOTRANSFERASE 18 U/L (12-78); ALBUMIN 3.5 G/DL (3.4-5.0); ALBUMIN/GLOBULIN RATIO 1.1 (1.0-2.7); ALKALINE PHOSPHATASE 60 U/L (46-116); AMYLASE 97 U/L (25-115); ANION GAP 6 mmol/L (5-15); ASPARTATE AMINO TRANSFERASE 17 U/L (15-37); BILIRUBIN,TOTAL 0.2 MG/DL (0.2-1.0); BLOOD UREA NITROGEN 8 mg/dL (7-18); CALCIUM 8.5 MG/DL (8.5-10.1); CARBON DIOXIDE 32 MMOL/L (21-32); CHLORIDE 105 MMOL/L (98-107); CHOLESTEROL 190 MG/DL (< 200); CREATININE 1.1 MG/DL (0.55-1.30); HDL CHOLESTEROL 43 MG/DL (40-60); POTASSIUM 4.7 MMOL/L (3.5-5.1); SODIUM 143 MMOL/L (136-145); TRIGLYCERIDES 187 MG/DL (30-150)
--- NOTE | 2019-11-22 07:24 | NUR ---
HAND-OFF: Report given to Dorita GUTIERREZ. VS stable. Bed in lowest position. Call light within reach. Will continue to monitor.
--- NOTE | 2019-11-22 07:44 | NUR ---
NURSE NOTES: Patient awake and alert and oriented.IV fluids infusing as ordered.Patient tolerating clear liquids.Candelaria catheter draining clear yellow urine.Patient state no pain at this time.Call light within reach.
[2019-11-22 08:00] VITALS: BP 103/71
[2019-11-22] MEDS: Venlafaxine XR 150mg cap ORAL SCH (09:17)
[2019-11-22] MEDS: Venlafaxine XR 37.5mg cap ORAL SCH (09:17)
--- NOTE | 2019-11-22 09:34 | General Progress Note ---
Assessment/Plan Assessment/Plan: (1) Abdominal pain (2) Pancreatics Discontinue Dilaudid Start [place] 10/325mg po 1 tab Q4H PRN severe pain D/w Dr. Cam he concurred. Subjective Date patient seen: Nov 22, 2019 Time patient seen: 08:00 - am Constitutional: Reports: no symptoms HEENT: Reports: no symptoms Cardiovascular: Reports: no symptoms Respiratory: Reports: no symptoms Gastrointestinal/Abdominal: Reports: abdominal pain Genitourinary: Reports: no symptoms Neurologic/Psychiatric: Reports: no symptoms Endocrine: Reports: no symptoms Hematologic/Lymphatic: Reports: no symptoms Allergies: Coded Allergies: No Known Allergies (Unverified , 11/20/19) Subjective Pain better d/w him about discontinuing Dilaudid and starting norco he seems to understand. Objective Last 24 Hour Vital Signs Date Time Temp Pulse Resp B/P (MAP) Pulse Ox O2 Delivery O2 Flow Rate FiO2 11/22/19 04:00 97.9 103 17 110/76 (87) 97 11/22/19 00:00 98.5 94 18 127/84 (98) 97 11/21/19 21:00 Room Air 11/21/19 20:00 98.4 99 17 124/86 (99) 97 11/21/19 18:29 96.8 11/21/19 16:00 97.9 96 18 120/81 (94) 97 11/21/19 12:00 96.8 86 18 108/75 (86) 98 Intake and Output 11/21/19 11/22/19 19:00 07:00 Intake Total 1500 ml 1305 ml Output Total 2050 ml 2000 ml Balance -550 ml -695 ml Intake Oral 600 ml 480 ml IV Total 900 ml 825 ml Output Urine Total 2050 ml 2000 ml # Voids 2 Laboratory Tests 11/22/19 05:30: White Blood Count 5.3, Red Blood Count 4.06L, Hemoglobin 12.2L, Hematocrit 38.7L , Mean Corpuscular Volume 95, Mean Corpuscular Hemoglobin 30.2, Mean Corpuscular Hemoglobin Concent 31.6L, Red Cell Distribution Width 12.5, Platelet Count 346, Mean Platelet Volume 6.1L, Neutrophils (%) (Auto) 56.6, Lymphocytes (%) (Auto) 31.7, Monocytes (%) (Auto) 9.5, Eosinophils (%) (Auto) 1.1, Basophils (%) (Auto) 1.0, Sodium Level 143, Potassium Level 4.7, Chloride Level 105, Carbon Dioxide Level 32, Anion Gap 6, Blood Urea Nitrogen 8, Creatinine 1.1, Estimat Glomerular Filtration Rate > 60, Glucose Level 97, Calcium Level 8.5, Total Bilirubin 0.2, Aspartate Amino Transf (AST/SGOT) 17, Alanine Aminotransferase (ALT/SGPT) 18, Alkaline Phosphatase 60, Total Protein 6.6, Albumin 3.5, Globulin 3.1, Albumin/Globulin Ratio 1.1, Triglycerides Level 187H, Cholesterol Level 190, LDL Cholesterol 111H, HDL Cholesterol 43, Cholesterol/HDL Ratio 4.4, Amylase Level 97, Lipase 132 Height (Feet): 5 Height (Inches): 3.00 Weight (Pounds): 115 General Appearance: no apparent distress, alert EENT: PERRL/EOMI, normal ENT inspection Neck: non-tender, normal alignment Cardiovascular: normal rate, regular rhythm Respiratory/Chest: lungs clear, normal breath sounds Abdomen: non tender, soft Extremities: non-tender Edema: no edema noted Generalized Neurologic: alert, oriented x 3 Skin: normal pigmentation Kraig Manley Nov 22, 2019 09:34
[2019-11-22] MEDS: HYDROcodone/Acetamin 10/325 tab ORAL PRN ×3 (11:07→20:36)
--- NOTE | 2019-11-22 11:34 | General Progress Note ---
Assessment/Plan Assessment/Plan: abd pain elevated lipase>>> now normal neg CT difficulty with urination>> giron repeat labs fu ID urology in put appreciated advance diet will fu Subjective Allergies: Coded Allergies: No Known Allergies (Unverified , 11/20/19) Objective Last 24 Hour Vital Signs Date Time Temp Pulse Resp B/P (MAP) Pulse Ox O2 Delivery O2 Flow Rate FiO2 11/22/19 09:00 Room Air 11/22/19 08:00 98.0 95 20 103/71 (82) 97 11/22/19 04:00 97.9 103 17 110/76 (87) 97 11/22/19 00:00 98.5 94 18 127/84 (98) 97 11/21/19 21:00 Room Air 11/21/19 20:00 98.4 99 17 124/86 (99) 97 11/21/19 18:29 96.8 11/21/19 16:00 97.9 96 18 120/81 (94) 97 11/21/19 12:00 96.8 86 18 108/75 (86) 98 Intake and Output 11/21/19 11/22/19 19:00 07:00 Intake Total 1500 ml 1305 ml Output Total 2050 ml 2000 ml Balance -550 ml -695 ml Intake Oral 600 ml 480 ml IV Total 900 ml 825 ml Output Urine Total 2050 ml 2000 ml # Voids 2 Laboratory Tests 11/22/19 05:30: White Blood Count 5.3, Red Blood Count 4.06L, Hemoglobin 12.2L, Hematocrit 38.7L , Mean Corpuscular Volume 95, Mean Corpuscular Hemoglobin 30.2, Mean Corpuscular Hemoglobin Concent 31.6L, Red Cell Distribution Width 12.5, Platelet Count 346, Mean Platelet Volume 6.1L, Neutrophils (%) (Auto) 56.6, Lymphocytes (%) (Auto) 31.7, Monocytes (%) (Auto) 9.5, Eosinophils (%) (Auto) 1.1, Basophils (%) (Auto) 1.0, Sodium Level 143, Potassium Level 4.7, Chloride Level 105, Carbon Dioxide Level 32, Anion Gap 6, Blood Urea Nitrogen 8, Creatinine 1.1, Estimat Glomerular Filtration Rate > 60, Glucose Level 97, Calcium Level 8.5, Total Bilirubin 0.2, Aspartate Amino Transf (AST/SGOT) 17, Alanine Aminotransferase (ALT/SGPT) 18, Alkaline Phosphatase 60, Total Protein 6.6, Albumin 3.5, Globulin 3.1, Albumin/Globulin Ratio 1.1, Triglycerides Level 187H, Cholesterol Level 190, LDL Cholesterol 111H, HDL Cholesterol 43, Cholesterol/HDL Ratio 4.4, Amylase Level 97, Lipase 132 Height (Feet): 5 Height (Inches): 3.00 Weight (Pounds): 115 General Appearance: alert EENT: normal ENT inspection Neck: supple Cardiovascular: normal rate Respiratory/Chest: decreased breath sounds Abdomen: soft, hypoactive bowel sounds Extremities: non-tender Scottie Campbell MD Nov 22, 2019 11:34
[2019-11-22 12:00] VITALS: BP 115/80
--- NOTE | 2019-11-22 13:50 | NUR ---
CASE MANAGEMENT:REVIEW SI;ACUTE PANCREATITIS. ABDOMINAL PAIN. 98.5 103 20 127/84 97% ON RA IS;NORCO PO FLOMAX PO DILAUDID IV IVF NS @ 75 ML/HR ZOFRAN IV MED SURG STATUS DCP;PATIENT IS FROM HOME PLAN OF CARE; UROLOGY CONSULT D/T URINARY RETENTION DIET UPGRADE; NOW ON FULL LIQUID DC DICK CATHETER
[2019-11-22 16:00] VITALS: BP 113/80
--- NOTE | 2019-11-22 16:32 | Infectious Diseases Prog Note ---
Assessment/Plan Assessment/Plan IMPRESSION: Acute pancreatitis Urinary retention, hypertension, anxiety. RECOMMENDATION: Observe off antibiotic Subjective ROS Limited/Unobtainable: No Constitutional: Reports: no symptoms Respiratory: Reports: no symptoms Gastrointestinal/Abdominal: Reports: other - decreased pain, tolerating liquid diet Genitourinary: Reports: no symptoms Allergies: Coded Allergies: No Known Allergies (Unverified , 11/20/19) Objective Last 24 Hour Vital Signs Date Time Temp Pulse Resp B/P (MAP) Pulse Ox O2 Delivery O2 Flow Rate FiO2 11/22/19 16:00 99.1 89 18 113/80 (91) 97 11/22/19 12:00 97.7 86 20 115/80 (92) 97 11/22/19 09:00 Room Air 11/22/19 08:00 98.0 95 20 103/71 (82) 97 11/22/19 04:00 97.9 103 17 110/76 (87) 97 11/22/19 00:00 98.5 94 18 127/84 (98) 97 11/21/19 21:00 Room Air 11/21/19 20:00 98.4 99 17 124/86 (99) 97 11/21/19 18:29 96.8 Height (Feet): 5 Height (Inches): 3.00 Weight (Pounds): 115 General Appearance: no acute distress HEENT: mucous membranes moist Respiratory/Chest: lungs clear Cardiovascular: normal rate Abdomen: other - firm Genitourinary: other - [place] catheter Extremities: no edema Neurologic/Psychiatric: alert, oriented x 3, responsive Microbiology Date/Time Source Procedure Growth Status 11/20/19 15:15 Nasopharynx Coronavirus COVID-19 PCR (ESE) - Final Complete Laboratory Tests Test 11/22/19 05:30 White Blood Count 5.3 K/UL (4.8-10.8) Red Blood Count 4.06 M/UL (4.70-6.10) L Hemoglobin 12.2 G/DL (14.2-18.0) L Hematocrit 38.7 % (42.0-52.0) L Mean Corpuscular Volume 95 FL (80-99) Mean Corpuscular Hemoglobin 30.2 PG (27.0-31.0) Mean Corpuscular Hemoglobin Concent 31.6 G/DL (32.0-36.0) L Red Cell Distribution Width 12.5 % (11.6-14.8) Platelet Count 346 K/UL (150-450) Mean Platelet Volume 6.1 FL (6.5-10.1) L Neutrophils (%) (Auto) 56.6 % (45.0-75.0) Lymphocytes (%) (Auto) 31.7 % (20.0-45.0) Monocytes (%) (Auto) 9.5 % (1.0-10.0) Eosinophils (%) (Auto) 1.1 % (0.0-3.0) Basophils (%) (Auto) 1.0 % (0.0-2.0) Sodium Level 143 MMOL/L (136-145) Potassium Level 4.7 MMOL/L (3.5-5.1) Chloride Level 105 MMOL/L (98-107) Carbon Dioxide Level 32 MMOL/L (21-32) Anion Gap 6 mmol/L (5-15) Blood Urea Nitrogen 8 mg/dL (7-18) Creatinine 1.1 MG/DL (0.55-1.30) Estimat Glomerular Filtration Rate > 60 mL/min (>60) Glucose Level 97 MG/DL (74-106) Calcium Level 8.5 MG/DL (8.5-10.1) Total Bilirubin 0.2 MG/DL (0.2-1.0) Aspartate Amino Transf (AST/SGOT) 17 U/L (15-37) Alanine Aminotransferase (ALT/SGPT) 18 U/L (12-78) Alkaline Phosphatase 60 U/L (46-116) Total Protein 6.6 G/DL (6.4-8.2) Albumin 3.5 G/DL (3.4-5.0) Globulin 3.1 g/dL Albumin/Globulin Ratio 1.1 (1.0-2.7) Triglycerides Level 187 MG/DL (30-150) H Cholesterol Level 190 MG/DL (< 200) LDL Cholesterol 111 mg/dL (<100) H HDL Cholesterol 43 MG/DL (40-60) Cholesterol/HDL Ratio 4.4 (3.3-4.4) Amylase Level 97 U/L (25-115) Lipase 132 U/L (73-393) Current Medications Medications (Trade) Dose Ordered Sig/Denise Route PRN Reason Start Time Stop Time Status Last Admin Dose Admin Acetaminophen/ Hydrocodone Bitart ([place] ) 1 tab Q4H PRN ORAL Severe Pain (Pain Scale 7-10) 11/22/19 09:45 11/29/19 09:44 11/22/19 11:07 Lorazepam (Ativan 2mg/ml 1ml) 0.5 mg Q4H PRN IV For Anxiety 11/20/19 20:45 11/27/19 20:44 Ondansetron HCl (Zofran) 4 mg Q4H PRN IVP Nausea & Vomiting 11/20/19 20:45 12/20/19 20:44 11/21/19 17:59 Sodium Chloride 1,000 ml @ 75 mls/hr [id number] IV 11/21/19 08:30 12/20/19 08:29 11/22/19 06:09 Tamsulosin HCl (Flomax) 0.4 mg BEDTIME ORAL 11/21/19 21:00 12/21/19 20:59 11/21/19 21:58 Venlafaxine HCl (Effexor-XR) 75 mg DAILY ORAL 11/21/19 11:30 02/19/20 11:29 11/22/19 09:17 Venlafaxine HCl (Effexor-XR) 150 mg DAILY ORAL 11/21/19 11:30 02/19/20 11:29 11/22/19 09:17 Rey Fontaine MD Nov 22, 2019 16:32
--- NOTE | 2019-11-22 18:26 | NUR ---
NURSE NOTES: Patient resting,no complaints at this time,patient tolerated full liquid diet.Candelaria catheter,draining clear yellow urine.Call light within reach.
--- NOTE | 2019-11-22 19:35 | NUR ---
HAND-OFF: Report given to
[2019-11-22 20:00] VITALS: BP 137/82
[2019-11-22] MEDS: Tamsulosin 0.4mg cap ORAL SCH (20:03)
--- NOTE | 2019-11-22 22:17 | General Progress Note ---
Assessment/Plan Problem List: (1) Suspected 2019 novel coronavirus infection ICD Codes: Z20.828 - Contact with and (suspected) exposure to other viral communicable diseases SNOMED: 927360901 (2) Acute pancreatitis ICD Codes: K85.90 - Acute pancreatitis without necrosis or infection, unspecified SNOMED: 522685270 Qualifiers: Qualified Codes: K85.90 - Acute pancreatitis without necrosis or infection, unspecified Status: progressing Assessment/Plan: afebrile pancreatitis is improving s/p giron dr rossi is consulted anxiet and depression Subjective ROS Limited/Unobtainable: Yes Allergies: Coded Allergies: No Known Allergies (Unverified , 11/20/19) Objective Last 24 Hour Vital Signs Date Time Temp Pulse Resp B/P (MAP) Pulse Ox O2 Delivery O2 Flow Rate FiO2 11/22/19 20:36 Room Air 11/22/19 20:00 98.1 82 18 137/82 (100) 99 11/22/19 16:00 99.1 89 18 113/80 (91) 97 11/22/19 12:00 97.7 86 20 115/80 (92) 97 11/22/19 09:00 Room Air 11/22/19 08:00 98.0 95 20 103/71 (82) 97 11/22/19 04:00 97.9 103 17 110/76 (87) 97 11/22/19 00:00 98.5 94 18 127/84 (98) 97 Intake and Output 11/21/19 11/22/19 19:00 07:00 Intake Total 1500 ml 1305 ml Output Total 2050 ml 2000 ml Balance -550 ml -695 ml Intake Oral 600 ml 480 ml IV Total 900 ml 825 ml Output Urine Total 2050 ml 2000 ml # Voids 2 Laboratory Tests 11/22/19 05:30: White Blood Count 5.3, Red Blood Count 4.06L, Hemoglobin 12.2L, Hematocrit 38.7L , Mean Corpuscular Volume 95, Mean Corpuscular Hemoglobin 30.2, Mean Corpuscular Hemoglobin Concent 31.6L, Red Cell Distribution Width 12.5, Platelet Count 346, Mean Platelet Volume 6.1L, Neutrophils (%) (Auto) 56.6, Lymphocytes (%) (Auto) 31.7, Monocytes (%) (Auto) 9.5, Eosinophils (%) (Auto) 1.1, Basophils (%) (Auto) 1.0, Sodium Level 143, Potassium Level 4.7, Chloride Level 105, Carbon Dioxide Level 32, Anion Gap 6, Blood Urea Nitrogen 8, Creatinine 1.1, Estimat Glomerular Filtration Rate > 60, Glucose Level 97, Calcium Level 8.5, Total Bilirubin 0.2, Aspartate Amino Transf (AST/SGOT) 17, Alanine Aminotransferase (ALT/SGPT) 18, Alkaline Phosphatase 60, Total Protein 6.6, Albumin 3.5, Globulin 3.1, Albumin/Globulin Ratio 1.1, Triglycerides Level 187H, Cholesterol Level 190, LDL Cholesterol 111H, HDL Cholesterol 43, Cholesterol/HDL Ratio 4.4, Amylase Level 97, Lipase 132 Height (Feet): 5 Height (Inches): 3.00 Weight (Pounds): 115 Hayder Tejeda MD Nov 22, 2019 22:17
--- NOTE | 2019-11-22 23:11 | Psych Consult Progress Note ---
Psychiatry Progress Note Psychiatry Progress Note Subjective the pt is irritable otherwise doing well Medications Current Medications Medications (Trade) Dose Ordered Sig/Denise Route PRN Reason Start Time Stop Time Status Last Admin Dose Admin Acetaminophen/ Hydrocodone Bitart ([place] 10/325) 1 tab Q4H PRN ORAL Severe Pain (Pain Scale 7-10) 11/22/19 09:45 11/29/19 09:44 11/22/19 20:36 Lorazepam (Ativan 2mg/ml 1ml) 0.5 mg Q4H PRN IV For Anxiety 11/20/19 20:45 11/27/19 20:44 Ondansetron HCl (Zofran) 4 mg Q4H PRN IVP Nausea & Vomiting 11/20/19 20:45 12/20/19 20:44 11/21/19 17:59 Sodium Chloride 1,000 ml @ 75 mls/hr [id number] IV 11/21/19 08:30 12/20/19 08:29 11/22/19 20:03 Tamsulosin HCl (Flomax) 0.4 mg BEDTIME ORAL 11/21/19 21:00 12/21/19 20:59 11/22/19 20:03 Venlafaxine HCl (Effexor-XR) 75 mg DAILY ORAL 11/21/19 11:30 02/19/20 11:29 11/22/19 09:17 Venlafaxine HCl (Effexor-XR) 150 mg DAILY ORAL 11/21/19 11:30 02/19/20 11:29 11/22/19 09:17 Neurological/Psychiatric: Reports: anxiety, depressed, emotional problems Allergies: Coded Allergies: No Known Allergies (Unverified , 11/20/19) Objective Data Height (Feet): 5 Height (Inches): 3.00 Weight (Pounds): 115 Additional Comments: awake, oriented to 4. Mood is irritable. Affect is flat. Thought process, linear. Thought content, no suicidal or homicidal ideation. Cognition is intact. Insight and judgment is fair. Assessment/Plan Status: progressing Tommy Roach MD Nov 22, 2019 23:11
[2019-11-23] VITALS: BP 125/80
[2019-11-23] MEDS: HYDROcodone/Acetamin 10/325 tab ORAL PRN (00:45)
[2019-11-23 04:00] VITALS: BP 108/77
--- NOTE | 2019-11-23 06:11 | NUR ---
NURSE NOTES: Removed the Candelaria cath. Will continue to monitor.
--- NOTE | 2019-11-23 07:30 | NUR ---
HAND-OFF: Report given to Araceli ABEL. Bed in lowest position. Call light within reach. Will continue to monitor.
--- NOTE | 2019-11-23 07:45 | NUR ---
NURSE NOTES: RECEIVED PATIENT A/A/OX4, AMBULATES WITH STEADY GAIT. NO ACUTE CARDIO-RESP DISTRESS NOTED. DENIES OF PAIN/DISCOMFORT NOTED. HAS VOIDED WITHOUT DISTRESS. KEPT BED IN THE LOWEST POSITION. SIDERAILS ARE UPX2. CALL LIGHT IS WITHIN REACH. TOLERATING FULL LIQUID DIET WELL. BED BRAKES AND LOCKED ENGAGED. WILL CONT TO MONITOR.
[2019-11-23 08:00] VITALS: BP 128/84
[2019-11-23] MEDS: Venlafaxine XR 150mg cap ORAL SCH (08:17)
[2019-11-23] MEDS: Venlafaxine XR 37.5mg cap ORAL SCH (08:17)
--- NOTE | 2019-11-23 09:33 | General Progress Note ---
Assessment/Plan Assessment/Plan: (1) Abdominal pain (2) Pancreatics Discontinue [place] Start Tylenol 650mg PO 1 tab Q4H PRN severe pain D/w Dr. Cam he concurred. Subjective Date patient seen: Nov 23, 2019 Time patient seen: 09:00 - am Allergies: Coded Allergies: No Known Allergies (Unverified , 11/20/19) Subjective Constitutional: Reports: no symptoms HEENT: Reports: no symptoms Cardiovascular: Reports: no symptoms Respiratory: Reports: no symptoms Gastrointestinal/Abdominal: Reports: abdominal pain Genitourinary: Reports: no symptoms Neurologic/Psychiatric: Reports: no symptoms Endocrine: Reports: no symptoms Hematologic/Lymphatic: Reports: no symptoms Subjective Patient reports that the pain is gone and is looking to be discharged home as per medical affairs specialist. D/w Him about discontinuing the [place] he seems to understand. Objective Last 24 Hour Vital Signs Date Time Temp Pulse Resp B/P (MAP) Pulse Ox O2 Delivery O2 Flow Rate FiO2 11/23/19 08:00 98.1 95 16 128/84 (99) 97 11/23/19 06:00 Room Air 11/23/19 04:00 97.7 97 18 108/77 (87) 96 11/23/19 00:00 97.7 85 18 125/80 (95) 96 11/22/19 20:36 Room Air 11/22/19 20:00 98.1 82 18 137/82 (100) 99 11/22/19 16:00 99.1 89 18 113/80 (91) 97 11/22/19 12:00 97.7 86 20 115/80 (92) 97 Intake and Output 11/22/19 11/23/19 19:00 07:00 Intake Total 2045 ml 1305 ml Output Total 2400 ml 1850 ml Balance -355 ml -545 ml Intake Oral 1220 ml 480 ml IV Total 825 ml 825 ml Output Urine Total 2400 ml 1850 ml Height (Feet): 5 Height (Inches): 3.00 Weight (Pounds): 113 Objective General Appearance: no apparent distress, alert EENT: PERRL/EOMI, normal ENT inspection Neck: non-tender, normal alignment Cardiovascular: normal rate, regular rhythm Respiratory/Chest: lungs clear, normal breath sounds Abdomen: non tender, soft Extremities: non-tender Edema: no edema noted Generalized Neurologic: alert, oriented x 3 Skin: normal pigmentation Kraig Manley Nov 23, 2019 09:33
--- NOTE | 2019-11-23 09:54 | NUR ---
RD ASSESSMENT & RECOMMENDATIONS SEE CARE ACTIVITY FOR COMPLETE ASSESSMENT DAILY ESTIMATED NEEDS: Needs based on pancreatitis 50kg 25-30 kcals/kg 5646-2924 total kcals 1-1.5 g protein/kg 50-75 g total protein 25-30 mL/kg 8697-8705 total fluid mLs NUTRITION DIAGNOSIS: Decreased fat needs r/t acute pancreatitis as evidenced by elev Lipase on adm now wnl (1654) w/ elev Triglycerides (187), elev LDL(111). CURRENT DIET: Full Liquid PO DIET RECOMMENDATIONS: Advance as tolerated to LOW FAT diet ADDITIONAL RECOMMENDATIONS: 1) Obtain a standing weight 2) Add ensure enlive qdaily on full liquid diet to better meet est needs 3) Diet edu on Low Fat diet provided
--- NOTE | 2019-11-23 10:19 | NUR ---
NURSE NOTES: DISCHARGE HOME WITH INSTRUCTIONS GIVEN. IN STABLE CONDITION. VERIFIED HOME ADDRESS. PATIENT REFUSED FOR STAFF TO CALL NEXT OF K[facility]. REMOVED IV ACCESS. PERSONAL BELONGINGS NOTED. VERBALIZED UNDERSTANDING.
--- NOTE | 2019-11-23 22:14 | Psych Consult Progress Note ---
Psychiatry Progress Note Psychiatry Progress Note Neurological/Psychiatric: Reports: anxiety, depressed, emotional problems Allergies: Coded Allergies: No Known Allergies (Unverified , 11/20/19) Objective Data Height (Feet): 5 Height (Inches): 3.00 Weight (Pounds): 113 Additional Comments: Alert, oriented x4 to self, place, situation, and date. Mood is depressed. Affect is constricted. Congruent mood. Thought process is linear and goal oriented. Thought content, there is suicidal ideation without plan. No homicidal ideation. No delusions. No auditory or visual hallucination. Cognition is impaired including memory and concentration. Insight and judgment is poor. Assessment/Plan Assessment/Plan Status: stable, progressing Assessment/Plan: Assessment/Plan Assessment/Plan Status: stable Diagnosis [place] I: ASSESSMENT: AXIS I: 1. Major depressive disorder. 2. Anxiety disorder. AXIS II: Deferred. AXIS III: As above. AXIS IV: As above. AXIS V: 50 PLAN: 1. cont effexor in the morning. 3. Provide the patient with reality orientation. 4. We will continue to follow up and reassess Assessment/Plan Status: stable Tommy Roach MD Nov 23, 2019 22:14
--- NOTE | 2019-11-25 09:45 | Discharge Summary ---
Discharge Summary Discharge Summary _ DATE OF ADMISSION: 11/20/2019 DATE OF DISCHARGE: 11/23/2019 DISCHARGED BY: Dr. Tejeda REASON FOR ADMISSION: 34 years old male with past medical history of hypertension, anxiety, presented with 2 weeks of continuous right lower quadrant abdominal pain which was getting progressively worse. Pain reported at this time 10 out of 10 without radiation. Patient reported multiple episodes of nonbloody emesis associated with diarrhea. Patient noted few drops of blood after defecation. No fever or chills. He complained of shortness of breath along with loss of taste and smell for 1 week. Patient reported being in contact with positive for COVID-19 coworker about a week ago. He denied chest pain, cough, congestion. He reported smoking tobacco on a daily basis. He denied alcohol use or other drug use. Patient was taking Tylenol for pain control. Upon evaluation patient was tachycardic with heart rate 113, otherwise vital signs were stable. Laboratory work-up revealed mild leukocytosis with WBC 11.5. Stable electrolytes. BUN 21, creatinine 1.3. Stable LFT. Lipase 1654. Troponin negative. Lactic acid 1.7. CRP 1.2. Ferritin 29. LDH 220. Urinalysis revealed no evidence of urinary tract infection. Urine toxicology screen was positive for benzodiazepine. Serum alcohol level was negative. Chest x-ray demonstrated no evidence of acute pulmonary disease. CT scan of the abdomen and pelvis revealed no acute process. Nonobstructing right renal calculus. 1.8 cm hypodensity in the superior interlobar liver. Possibly reflecting focal fat, but location was not typical. Recommended nonemergent ultrasound. Patient was swabbed for COVID-19. Patient received IV fluids ,analgesic ,antiemetic, Pepcid and admitted for further management. CONSULTANTS: ID specialist Dr. Rey Fontaine urologist Dr. Mendiola pain specialist Dr. Cam GI specialist Dr. Campbell psychiatrist Dr. Roach [facility] COURSE: Patient admitted to medical surgical floor and initially was kept n.p.o. GI specialist followed. Lipase and amylase were closely monitored. Lipase down to 132, amylase remained stable. LFT remained stable. Lipid panel revealed triglycerides 187, LDL 111. Patient counseled on low-fat low-cholesterol diet. Pain management was addressed as per pain specialist recommendation. GI prophylaxis provided Patient slowly started on diet and was advanced as tolerated. Antiemetic were on board as needed. Patient was able to tolerate diet. ID specialist followed. COVID-19 was not detected. Initial mild leukocytosis resolved. No evidence of infection. ID specialist recommended to observe patient off antibiotic. Urology seen and evaluated patient for progressive difficulty with urinating and acute urinary retention in the hospital. Patient was taking Effexor at baseline ,which can cause urinary retention, but he had been on this medication without problems for years. Diagnostic imaging with CT scan done in emergency room did not reveal any significant findings. Patient had an incidental finding of nonobstructing right renal stone of 6 mm. Patient initially had a Candelaria catheter placed . Patient started on Flomax in an effort to improve his voiding. Opioids and other medication for pain that can affect urinary function, were limited. Catheter was later discontinued , and patient was able to urinate without difficulties. Psychiatrist seen and evaluated patient. Reality orientation and supportive therapy provided. Effexor continued. Patient clinically stabilized and was ready for discharge home. Outpatient follow-up with a primary care provider. Nonemergent abdominal ultrasound was recommended. FINAL DIAGNOSES: Probably acute pancreatitis Urinary retention -resolved Abdominal pain Elevated liapse - resolved Hypertension Major depressive disorder Anxiety disorder DISCHARGE MEDICATIONS: See Medication Reconciliation list. DISCHARGE INSTRUCTIONS: Patient was discharged home. Follow-up with a primary care provider in 1 week. I have been assigned to dictate discharge summary for this account. I was not involved in the patient's management. Mahnaz Fonseca NP Nov 25, 2019 09:45
== END 2019-11-23 10:35 | disposition home or self-care (01) | DRG 440 ==
LOC: EMR 14:20 → 4E 15:25 → EDBEDREQ 16:37
DX: K85.90 Acute pancreatitis without necrosis or infection, unspecified (principal); I10 Essential (primary) hypertension; F17.200 Nicotine dependence, unspecified, uncomplicated; F41.9 Anxiety disorder, unspecified; F32.9 Major depressive disorder, single episode, unspecified; R74.8 Abnormal levels of other serum enzymes
CPT/HCPCS: 36415; 71045; 74177; 80053; 80061; 80307; 81003; 82150; 82728; 83605; 83615; 83690; 83735; 84484; 85025; 85379; 85610; 85730; 86140; 86850; 86900; 86901; 93005; 96361; 96374; 96375; 99285; G0480; J2405; J2765; J7030